=== PATIENT | male | born 1935 | race Caucasian/White ===

== ENCOUNTER 2023-08-17 12:05 | Emergency (ER) | payer MEDICARE, SELFPAY ==
[2023-08-17 12:52] VITALS: BP 156/79; PULSE 67; RESP 16; TEMP 36.3; O2SAT 98
--- NOTE | 2023-08-17 13:22 | ED.URI ---
HPI - URI/Sore Throat General Chief Complaint: Upper Respiratory Infection Stated Complaint: congestion,cough Time Seen by Provider: 08/17/23 13:00 Source: patient Mode of arrival: ambulatory Limitations: no limitations History of Present Illness HPI Narrative: Lazaro is a an 88-year-old male patient presenting to clinic today with complaints of cough, sore throat, and nasal congestion x6 days. He reports that he just got back from [place]. He denies any chest pain or shortness of breath. He denies any fever or chills. Reports that he has got a nonproductive cough. MD elicited complaint: cough, sore throat and nasal congestion Related Data Allergies Allergy/AdvReac Type Severity Reaction Status Date / Time No Known Allergies Allergy Verified 08/17/23 12:59 Review of Systems Review of Systems: Pertinent positives per HPI. Patient denies any fever, chills, rash, headache, visual changes, dizziness, cough, shortness of breath, chest pain, palpitations, nausea, vomiting, diarrhea, constipation, abdominal pain, or any urinary issues. [facility] Past Medical History Medical History (Updated 08/17/23 @ 13:24 by Silverio Navarrete APRN) Arrhythmia Bradycardia Carotid stenosis Counseling about travel Dyslipidemia Encounter for screening for malignant neoplasm of prostate Hypertension Prostate cancer Sciatica Surgical History Surgical History H/O knee surgery H/O prostatectomy History of back surgery History of hip replacement Social History Social History Smoking status: Former smoker Alcohol intake: current Substance use: never Occupation/Education: retired Agree to blood products: Yes Comments At the time of my signature, I reviewed and agree with the nursing past medical, surgical, social, and family history. There is no relevant family history pertinent to the patient complaint. Exam Narrative: General: Well-developed, well nourished, in no apparent distress Head: Normocephalic, atraumatic Eyes: Pupils equally round and reactive to light bilaterally, EOM intact, sclera and conjunctive clear, no discharge, lids normal Ears: TMs intact and clear, ear canals clear, no drainage, grossly hearing normal. Nose: Nares patent, clear nasal discharge, no inflammation, no sinus tenderness. Mouth: Oral pharynx red without lesions or masses, good dentition, MMM. Postnasal drip Neck: Supple, trachea midline, no enlargement of anterior or posterior cervical nodes, no thyroid masses or goiter palpable. Cardio: Regular rate and rhythm, s1 and s2 normal, no murmur appreciated. Resp: Clear to auscultation bilaterally, no rhonchi, rales, wheezing or rubs Course Course Emergency Course: Portions of this record may have been created with voice recognition software. Level of Care: Express Care Visit Vital Signs Vital signs: Vital Signs Temperature 36.3 C L 08/17/23 12:52 Pulse Rate 67 08/17/23 12:52 Respiratory Rate 16 08/17/23 12:52 Blood Pressure 156/79 H 08/17/23 12:52 Pulse Oximetry 98 08/17/23 12:52 Oxygen Delivery Room Air 08/17/23 12:52 Temperature 36.3 C L 08/17/23 12:52 Pulse Rate 67 08/17/23 12:52 Respiratory Rate 16 08/17/23 12:52 Blood Pressure 156/79 H 08/17/23 12:52 Pulse Oximetry 98 08/17/23 12:52 Oxygen Delivery Room Air 08/17/23 12:52 Vital signs reviewed MDM - URI/Sore Throat MDM Narrative Medical decision making narrative: At the time of visit patient is resting comfortably on the exam table. Patient appears to be nontoxic. Strep test was performed and was negative in the clinic today. We will send for culture. Will send in prescription for some prednisone to help with the nasal congestion and postnasal drip. Supportive measures were discussed with the patient and they voiced understanding discharge instructions and
== END 2023-08-17 13:27 | disposition home or self-care (01) ==
PROVIDERS: Emergency Provider Nurse Practitioner Family; PCP Family Medicine
DX: J06.9 Acute upper respiratory infection, unspecified (principal); J02.9 Acute pharyngitis, unspecified; Z87.891 Personal history of nicotine dependence; E78.5 Hyperlipidemia, unspecified; I10 Essential (primary) hypertension; Z85.46 Personal history of malignant neoplasm of prostate; Z90.79 Acquired absence of other genital organ(s)
CPT/HCPCS: 87081; 87880; 99213; G0463